=== PATIENT | female | born 1965 | race Caucasian/White ===

== ENCOUNTER → 2024-01-27 08:15 | Outpatient (REF) | payer BC, SELFPAY | LOC: RCS 08:15 | PROVIDERS: ATTENDING PHYSICIAN Nurse Practitioner Family; FAMILY PHYSICIAN Internal Medicine | DX: I45.9 Conduction disorder, unspecified (principal) | CPT/HCPCS: 93225; 93226 ==

== ENCOUNTER 2024-02-05 06:27 | Emergency (ER) | payer BC, SELFPAY ==
[2024-02-05 06:37] VITALS: BP 165/104
--- NOTE | 2024-02-05 08:51 | ED.GENMED ---
History of Present Illness
General
Chief Complaint: Abdominal Pain
Source: patient
Exam Limitations: none
Time Seen by Provider: 02/05/24 08:26
Nursing documentation reviewed up to this point in time: agreed with
Travel History
Have you had any contact with someone who has COVID-19?: No
Do you have any symptoms of coronavirus? Fever > 100 degrees, chills, cough, shortness of breath, sore throat, loss of taste or smell, muscle aches, or headache?: No
History of Present Illness
History of Present Illness:
58 yr old female presents to the ED for evaluation. Patient reports she has had chest tightness and upper abdominal discomfort for the past 1-1/2 to 2 weeks. She reports it is worse when she lays down and sleep and is definitely worse at night.
She reports when she burps the symptoms seem to improve. She has no pain at all with walking fact she reports exercise and walking makes it better. She does feel reflux going up her throat. She has had some palpitations and was seen by her family
doctor who ordered a Holter monitor. She had a Holter monitor done last week and is scheduled to see Dr. Summers of cardiology next week. She also has an echo scheduled tomorrow. She does not smoke. She is no cardiac history.
She is presently asymptomatic. She denies any shortness of breath with it. Patient complains of feeling anxious over getting blood work here in the ER.
Review of Systems
Review of Systems
Allergies reviewed?: Yes
All Other Systems: ROS reviewed and negative except as documented in HPI and ROS
Constitutional: Reports no symptoms
Respiratory: Denies trouble breathing
Cardiac: Reports chest pain
ABD/GI: Reports abdominal pain (upper abd discomfort and reflux)
Musculoskeletal: Reports no symptoms
Skin: Reports no symptoms
Neurological: Reports no symptoms
Hematologic/Lymphatic: Reports no symptoms
Psychiatric: Reports no symptoms
Phy Exam
General Physical Exam
General Presentation: well appearing and no apparent distress
General age: appears stated age
General Skin: warm and dry
General Habitus: normal
General Mental: alert
General Hydration: appears well hydrated
Cardiovascular Exam
Cardiovascular Exam: regular rate/rhythm, no murmur and normal peripheral pulses
Pulmonary Exam
Pulmonary Exam: lungs clear
Neurological Exam
Neurological Exam: alert and oriented x3
Course
Orders/Labs/Results
Orders:
Orders
02/05/24 08:48
IV Insert/Care/Rem.- Treatment PRN
02/05/24 08:50
Cardiac Monitoring- Treatment ONCE
CR Chest - 2 Views Urgent
Comment:
Reason For Exam: cp
02/05/24 09:31
Complete Blood Count/With Diff Urgent
Comprehensive Metabolic Panel Urgent
Troponin I Urgent
02/05/24 11:13
Electrocardiogram (*1) Stat
Reason for Study: Other
Other Reason for Exam: chest pain
EKG- Treatment ONCE
02/05/24 11:59
Famotidine [Pepcid] 20 mg IV NOW STA
Mag Hydrox/Al Hydrox/Simeth [Maalox] 30 ml Phenobarb/Hyoscy/Atropine/Scop [] 10 ml PO NOW
02/05/24 12:01
Mag Hydrox/Al Hydrox/Simeth [Maalox] 30 ml .ROUTE .STK-MED ONE
Phenobarb/Hyoscy/Atropine/Scop [] 10 ml .ROUTE .STK-MED ONE
02/05/24 12:02
Sterile Water [Sterile Water For Injection] 10 ml .ROUTE .STK-MED ONE
Abnormal Lab Results
02/05/24
09:31
Glucose 107 H mg/dl
(70-99)
Calcium 10.3 H mg/dl
(8.4-10.2)
02/05/24 09:31
02/05/24 09:31
Vital Signs
Initial and Last Documented VS:
Initial Vital Signs
Temp Pulse Resp BP Pulse Ox
98.1 F 100 14 165/104 100
02/05/24 06:37 02/05/24 06:37 02/05/24 06:37 02/05/24 06:37 02/05/24 06:37
Last Documented Vital Signs
Temp Pulse Resp BP Pulse Ox
98.1 F 105 26 115/91 96
02/05/24 06:37 02/05/24 12:00 02/05/24 12:00 02/05/24 12:00 02/05/24 12:00
Insulation Worker consulted with Physician
Insulation Worker consulted with physician?: Yes
Name of Physician Consulted: [email or web address]
MDM/Problems Addressed
MDM/Problems Addressed:
Symptoms are consistent with reflux, GERD. Patient describes symptoms discomfort and upper abdominal discomfort and chest worse with laying down feels reflux relieved with belching. It is better with activity better with walking. She has no
cardiac history. She has had issues with this feeling skipped heart rate and had a Holter monitor last week has an echo scheduled has cardiology appointment scheduled patient to continue this appointment however symptoms are likely reflux will DC
with Protonix daily with close outpatient follow-up family doctor and if needed GI
*Radiology
Radiology exam reviewed: radiology read reviewed
*Pulse Oximetry
Patient hypoxic: no
*EKG
Interpreted by ED Provider?: Yes
Interpretation: normal
Heart Rate: 99
Rate: normal
Rhythm: PVC's
Ischemia: no ischemia
*Critical Care Note
Total Time (30-74mins, 75-104mins- exclusive of procedures): Not Applicable
ED Attending Note
-
Portions of this chart may have been created with voice recognition software.� Occasional wrong word or��sound alike� substitutions may have occurred due to the inherent limitations of voice recognition software.
Discharge Plan
Departure
Patient Disposition: Home (Routine Discharge)
Date of Disposition: 02/05/24
Time of Disposition: 12:49
Patient with high blood pressure during this ER visit?: Yes
Condition: Fair
Covid-19: Not Applicable
Discharge Problem:
gerd
Instructions: Acid Reflux and GERD in Adults (DC), BLOOD PRESSURE
Prescriptions:
New
pantoprazole [Protonix] 40 mg tablet,delayed release (DR/EC)
40 mg PO DAILY Qty: 14 0RF
No Action
multivitamin Tablet
1 tab PO DAILY
fexofenadine-pseudoephedrine [Yusra-D 12 Hour] 60-120 mg Tablet Extended Release 12 Hr
1 tab PO Q12H PRN (Reason: Allergies)
fluticasone propionate [Flonase] 50 mcg/actuation [place],Suspension
1 spray INTRANASAL BID PRN (Reason: Allergies)
cholecalciferol (vitamin D3) [Vitamin D3] 125 mcg (5,000 unit) Tablet
125 mcg PO BID
Nurtec ODT 75 mg Tablet,Disintegrating
75 mg PO ONCE PRN (Reason: Migraine)
Referrals:
Eliud Guy MD [Family Provider] -
Tahira Sharma MD [Active] -
Activity Restrictions/Additional Instructions:
As discussed a prescription for Protonix was sent to your pharmacy take as directed daily for the next 14 days. Be sure to avoid spicy foods caffeine chocolate. Return to the ER if any worsening of symptoms he may follow-up also with a family
doctor. Continue to follow-up with cardiology as previously scheduled though today symptoms are consistent with reflux
Interventions
Interventions:
*Risk Screen - Suicide Last Done: 02/05/24 09:19
*General Assessment Last Done: 02/05/24 09:19
*Neglect/Abuse Screening Last Done: 02/05/24 09:19
ED- Fall Risk Assessment Last Done: 02/05/24 09:19
*ED COVID-19 Vaccine History Last Done: 02/05/24 09:19
[facility]-Uxhsvt-Pzfkolroyg Assessment Last Done: 02/05/24 09:19
Discharge Date and Time
Print Language: LAO
[2024-02-05 09:20] VITALS: BP 138/78; BMI 24.7
[2024-02-05 09:41] LABS: % Basophils 0.6 % (0-2); % Eosinophils 0.3 % (0-6); % Immature Granulocytes 0.3 % (0-0.5); % Lymphocytes 26.2 % (20.5-51.1); % Neutrophils 69.6 % (42.2-75.2); Absolute Basophils 0.1 10^3/uL (0-0.2); Absolute Monocytes 0.2 10^3/uL (0.1-0.6); Absolute Neutrophils 5.4 10^3/uL (1.4-6.5); Hematocrit 39.8 % (37.0-47.0); Hemoglobin 13.8 g/dL (12.0-16.0); Mean Corp Hgb Conc. 34.7 g/dL (33.0-37.0); Mean Corpuscular Hgb 29.6 pg (27.0-31.0); Mean Corpuscular Volume 85.2 fL (81.0-99.0); Mean Platelet Volume 9.4 fL (7.4-10.4); Nucleated Red Blood Cells % 0 %; Platelet Count 299 10^3/uL (130-400); Red Blood Cell Count 4.67 10^6/uL (4.20-5.40); Red Cell Dist. Width 12.9 % (11.5-14.5); White Blood Cell Count 7.8 10^3/uL (4.8-10.8)
[2024-02-05 09:53] LABS: ALT (SGPT) 27 U/L (0-35); AST (SGOT) 30 U/L (14-36); Albumin 4.9 g/dl (3.5-5.0); Alkaline Phosphatase 103 U/L (38-126); Blood Urea Nitrogen 10 mg/dl (7-17); Calcium 10.3 mg/dl (8.4-10.2); Carbon Dioxide 22 mmol/L (22-30); Chloride 107 mmol/L (98-107); Estimated Creatinine Clearance 93 ml/min; Glucose 107 mg/dl (70-99); Potassium 4.2 mmol/L (3.5-5.1); Sodium 137 mmol/L (135-145); Total Bilirubin 0.5 mg/dl (0.2-1.3); Total Protein 7.7 g/dl (6.3-8.2); eGFR > 60.00
[2024-02-05 10:11] LABS: Troponin I < 0.012 ng/ml
[2024-02-05 10:38] VITALS: BP 127/86
[2024-02-05 11:00] VITALS: BP 116/82
[2024-02-05 12:00] VITALS: BP 115/91
[2024-02-05] MEDS: MAALOX 40 PO (12:03)
[2024-02-05] MEDS: PEPCID 20 MG PO (13:06)
== END 2024-02-05 13:11 | disposition home or self-care (01) ==
LOC: EMR 06:27
PROVIDERS: Nurse Practitioner; EMERGENCY PHYSICIAN Student in an Organized Health Care Education/Training Program; FAMILY PHYSICIAN Internal Medicine
DX: K21.9 Gastro-esophageal reflux disease without esophagitis (principal); R03.0 Elevated blood-pressure reading, without diagnosis of hypertension
CPT/HCPCS: 99285; 71046; 80053; 84484; 85025; 93005

== ENCOUNTER → 2024-02-06 14:28 | Outpatient (REF) | payer BC, SELFPAY | LOC: HWRCS 14:28 | PROVIDERS: ATTENDING PHYSICIAN Nurse Practitioner Family; FAMILY PHYSICIAN Internal Medicine | DX: I45.9 Conduction disorder, unspecified (principal) | CPT/HCPCS: 93306 ==

== ENCOUNTER 2024-02-13 11:13 | Emergency (ER) | payer BC, SELFPAY ==
[2024-02-13] VITALS (7 sets, daily range): BP systolic 109–128; BP diastolic 73–93; PULSE 81–115; BMI 23.1
[2024-02-13 12:03] LABS: % Basophils 0.8 % (0-2); % Eosinophils 1.1 % (0-6); % Immature Granulocytes 0.5 % (0-0.5); % Lymphocytes 37.5 % (20.5-51.1); % Monocytes 6.2 % (1.7-9.3); % Neutrophils 53.9 % (42.2-75.2); Absolute Basophils 0.1 10^3/uL (0-0.2); Absolute Eosinophils 0.1 10^3/uL (0-0.7); Absolute Lymphocytes 3.2 10^3/uL (1.2-3.4); Absolute Monocytes 0.5 10^3/uL (0.1-0.6); Absolute Neutrophils 4.6 10^3/uL (1.4-6.5); Hematocrit 41.2 % (37.0-47.0); Hemoglobin 14.4 g/dL (12.0-16.0); Mean Corpuscular Hgb 30.1 pg (27.0-31.0); Mean Corpuscular Volume 86.2 fL (81.0-99.0); Mean Platelet Volume 9.9 fL (7.4-10.4); Nucleated Red Blood Cells % 0 %; Platelet Count 316 10^3/uL (130-400); Red Blood Cell Count 4.78 10^6/uL (4.20-5.40); Red Cell Dist. Width 12.7 % (11.5-14.5); White Blood Cell Count 8.5 10^3/uL (4.8-10.8)
[2024-02-13 12:16] LABS: ALT (SGPT) 52 U/L (0-35); AST (SGOT) 42 U/L (14-36); Albumin 5.2 g/dl (3.5-5.0); Alkaline Phosphatase 99 U/L (38-126); Blood Urea Nitrogen 10 mg/dl (7-17); Calcium 10.7 mg/dl (8.4-10.2); Carbon Dioxide 28 mmol/L (22-30); Chloride 103 mmol/L (98-107); Glucose 104 mg/dl (70-99); Sodium 138 mmol/L (135-145); Total Bilirubin 0.6 mg/dl (0.2-1.3); Total Protein 8.2 g/dl (6.3-8.2); eGFR > 60.00
[2024-02-13 12:26] LABS: Troponin I < 0.012 ng/ml
[2024-02-13 12:33] LABS: Urine Albumin Negative (Neg - Trace); Urine Bilirubin Negative (Negative); Urine Character Clear (Clear); Urine Color Yellow; Urine Glucose Negative (Negative); Urine Ketone Negative (Negative); Urine Leukocyte Negative (Negative); Urine Nitrite Negative (Negative); Urine Occult Blood Negative (Negative); Urine Urobilinogen Negative (Neg - 1+)
--- NOTE | 2024-02-13 14:53 | ED.GENMED ---
History of Present Illness
General
Chief Complaint: Dizziness
Source: patient
Exam Limitations: none
Time Seen by Provider: 02/13/24 12:56
Travel History
Have you had any contact with someone who has COVID-19?: No
Do you have any symptoms of coronavirus? Fever > 100 degrees, chills, cough, shortness of breath, sore throat, loss of taste or smell, muscle aches, or headache?: No
History of Present Illness
History of Present Illness:
This is a 58yo who presents with a variety of complaints. the pt was seen in the ER on 02/04 and has been seen by her pcp. pt states that she has had off/on palpitations. her doctor had ordered an echo and a holter. the holter showed about 3% of
PVC's. Patient is unaware of the results of her echocardiogram. She has a cardiology appointment planned for Friday. Patient states that in the night she woke all night and had a little bit of an anxiety attack. She does admit that she has had
migraines and suspects is related. Her doctor advised her to come off of her migraine medicines to see if it was playing a role. Patient also reported feeling 'dizzy'. Primary care doctor noted she developed worsening symptoms when she went lying
to standing. Patient denies diarrhea or melena. No hematochezia. Today she had an episode of fast heart rate. She became concerned. On my evaluation she actually feels much better. On her last emergency department visit, she had had some
discomfort in her chest but is associated with GERD she states that seems better
Past History
Past History
ED Past Medical History: GERD, Psychiatric (Anxiety) and Other (PVCs, migraine)
Phy Exam
Physical Exam
Physical Exam:
CONSTITUTIONAL Patient alert and oriented to person, place and time. Well-appearing. Vital signs reviewed.
HEAD atraumatic, normocephalic.
EYES eyelids normal to inspection, Pupils equally round and reactive to light, Extraocular muscles intact, Conjunctiva normal, Sclera normal.
NECK normal range of motion, Trachea midline, no jugular venous distention.
RESPIRATORY CHEST No respiratory distress noted, Chest expansion equal, Bilateral breath sounds clear.
CARDIOVASCULAR regular rate and rhythm, Heart sounds normal.
ABDOMEN abdomen nontender, Bowel sounds normal. No distention.
BACK normal inspection, no obvious deformities
UPPER EXTREMITY range of motion normal, Motor strength normal, no cyanosis, no edema.
LOWER EXTREMITY range of motion normal, Motor strength normal, no cyanosis, no edema.
NEURO Speech normal, No focal motor deficits, Sandy coma scale 15, Memory normal, Cranial Nerves intact to screening exam.
SKIN skin warm, dry, and normal in color.
PSYCHIATRIC patient oriented to person place and time, Normal affect.
Course
Orders/Labs/Results
Orders:
Orders
02/13/24 11:39
Electrocardiogram (*1) Urgent
Reason for Study: Vertigo / Dizzy
EKG- Treatment ONCE
02/13/24 11:50
CMP [Comprehensive Metabolic Panel] Urgent
Complete Blood Count/With Diff Urgent
Troponin I Urgent
Urinalysis Reflex To Culture Urgent
Date Specimen was Collected: 02/13/24
Time Specimen was Collected: 11:38
02/13/24 13:38
Orthostatic VS- Treatment ONCE
Abnormal Lab Results
02/13/24
11:50
Glucose 104 H mg/dl
(70-99)
Calcium 10.7 H mg/dl
(8.4-10.2)
AST 42 H U/L
(14-36)
ALT 52 H U/L
(0-35)
Albumin 5.2 H g/dl
(3.5-5.0)
02/13/24 11:50
02/13/24 11:50
Vital Signs
Initial and Last Documented VS:
Initial Vital Signs
Temp Pulse Resp Pulse Ox
98.1 F 95 18 98
02/13/24 11:30 02/13/24 11:30 02/13/24 11:30 02/13/24 11:30
Last Documented Vital Signs
Temp Pulse Resp BP Pulse Ox
98.1 F 95 18 128/89 100
02/13/24 11:30 02/13/24 11:30 02/13/24 11:30 02/13/24 13:03 02/13/24 13:04
MDM/Problems Addressed
MDM/Problems Addressed:
Palpitations, anxiety, orthostasis
*Pulse Oximetry
Patient hypoxic: no
*EKG
Interpreted by ED Provider?: Yes
Interpretation: normal
Rate: normal
Rhythm: sinus
[place]: normal axis
QRS Pattern: normal QRS
Ischemia: no ischemia
*Food Runner Interpretation
Rate: normal
Interpretation: normal
Rhythm: sinus
*Critical Care Note
Total Time (30-74mins, 75-104mins- exclusive of procedures): Not Applicable
Data Reviewed
Source: patient
Prescriptions/Medications Considered But Not Given:
Considered AV blockers but patient appears well and sees cardiology on Friday
Patient Management
Escalation/DeEscalation of care consider admission/obs:
Heart rate did increase with standing. Will encourage her to drink plenty fluids. Also advised against taking Yusra-D. Also advised to hold off on migraine medicine focal seen by cardiology. Overall well-appearing and no clinical suspicion for
concerning arrhythmia
ED Attending Note
-
Portions of this chart may have been created with voice recognition software.� Occasional wrong word or��sound alike� substitutions may have occurred due to the inherent limitations of voice recognition software.
Discharge Plan
Departure
Patient Disposition: Home (Routine Discharge)
Date of Disposition: 02/13/24
Time of Disposition: 14:53
Patient with high blood pressure during this ER visit?: No
Discharge Problem:
Palpitations
Instructions: Palpitations
Prescriptions:
No Action
multivitamin Tablet
1 tab PO DAILY
fexofenadine-pseudoephedrine [Yusra-D 12 Hour] 60-120 mg Tablet Extended Release 12 Hr
1 tab PO Q12H PRN (Reason: Allergies)
fluticasone propionate [Flonase] 50 mcg/actuation [place],Suspension
1 spray INTRANASAL BID PRN (Reason: Allergies)
cholecalciferol (vitamin D3) [Vitamin D3] 125 mcg (5,000 unit) Tablet
125 mcg PO BID
Nurtec ODT 75 mg Tablet,Disintegrating
75 mg PO ONCE PRN (Reason: Migraine)
pantoprazole [Protonix] 40 mg tablet,delayed release (DR/EC)
40 mg PO DAILY Qty: 14 0RF
Referrals:
Eliud Guy MD [Family Provider] -
Activity Restrictions/Additional Instructions:
Please see cardiology on Friday as planned. Return immediately for chest pain, shortness of breath, worsening symptoms or any other concerns. Please drink plenty of fluids. Continue to hold your migraine medicine for now.
Interventions
Interventions:
*Risk Screen - Suicide Last Done: 02/13/24 13:01
*General Assessment Last Done: 02/13/24 13:01
*Neglect/Abuse Screening Last Done: 02/13/24 13:01
ED- Fall Risk Assessment Last Done: 02/13/24 13:01
*ED COVID-19 Vaccine History Last Done: 02/13/24 13:01
ED- Neurological Assessment Last Done: 02/13/24 13:01
ED- Cardiac Assessment Last Done: 02/13/24 13:01
ED Swallowing Screen Last Done: 02/13/24 13:01
Discharge Date and Time
Print Language: SAUDI ARABIAN
== END 2024-02-13 15:30 | disposition home or self-care (01) ==
LOC: EMR 11:13
PROVIDERS: Emergency Medicine; EMERGENCY PHYSICIAN Emergency Medicine; FAMILY PHYSICIAN Internal Medicine
DX: R00.2 Palpitations (principal); R42 Dizziness and giddiness; K21.9 Gastro-esophageal reflux disease without esophagitis; F41.9 Anxiety disorder, unspecified; I49.3 Ventricular premature depolarization
CPT/HCPCS: 99283; 80053; 81003; 84484; 85025; 93005

== ENCOUNTER → 2024-10-08 14:00 | Outpatient (REF) | payer BC, SELFPAY | LOC: WDC 14:00 | PROVIDERS: ATTENDING PHYSICIAN Obstetrics & Gynecology Gynecology; FAMILY PHYSICIAN Internal Medicine | DX: R92.8 Other abnormal and inconclusive findings on diagnostic imaging of breast (principal); Z12.31 Encounter for screening mammogram for malignant neoplasm of breast | CPT/HCPCS: 76642; 77063; 77067 ==

== ENCOUNTER 2024-12-05 20:24 | Emergency (ER) | payer BC, SELFPAY ==
[2024-12-05 20:40] VITALS: BP 139/90
--- NOTE | 2024-12-05 22:35 | ED.MUSCINJ ---
HPI-Injury
General
Chief Complaint: Musculo-Skeletal Complaint
Source: patient
Exam Limitations: none
Time Seen by Provider: 12/05/24 21:05
Nursing documentation reviewed up to this point in time: agreed with
History of Present Illness-Injury
Is this injury a work related problem?: No
Is pt an associate of [facility]?: No
Initial Injury comments:
Patient states she was outside walking her dogs and tripped and fell. Denies hitting her head. Complains of pain to right lat ankle, right lateral foot, abrasion to right knee. Injury occurred just [employer]. Brought to ED by neighbor for eval. Tdap
UTD
Past History
Past History
ED Past Medical History: GERD, Psychiatric (Anxiety) and Other (PVCs, migraine)
Review of Systems
Review of Systems
Allergies reviewed?: Yes
All Other Systems: ROS reviewed and negative except as documented in HPI and ROS
Constitutional: Reports no symptoms
Musculoskeletal: Reports joint pain (pain to right lat ankle and right lateral foot)
Skin: Reports other (abrasion to right knee)
Neurological: Reports no symptoms
Psychiatric: Reports no symptoms
Musculoskeletal Injury Exam
Musculoskeletal Injury Exam
Right Lateral Ankle:
Pain with Movement?: Moderate
Tender to palpation?: Moderate
Soft tissue swelling?: Moderate
External deformity and angulation?: None
Joint effusion?: None
Contusion?: None
Hematoma-local bleeding into tissue?: None
Strain- Sprain- Tear (Connective tissue injury)?: Moderate
Crepitus with movement?: No
Joint instability?: No
Malalignment/deformity?: No
Range of motion: Limited
Distal skin color and temperature: normal-warm & good color
Capillary Refill: normal
Normal distal neurovascular exam?: Yes
Peripheral Pulses: posterior tibial (right): 3+ and dorsalis pedis (right): 3+
Right Lateral Foot:
Pain with Movement?: Moderate
Tender to palpation?: Moderate
Soft tissue swelling?: Moderate
External deformity and angulation?: None
Joint effusion?: None
Contusion?: None
Hematoma-local bleeding into tissue?: Moderate
Strain- Sprain- Tear (Connective tissue injury)?: Moderate
Crepitus with movement?: No
Joint instability?: No
Malalignment/deformity?: No
Range of motion: Limited
Distal skin color and temperature: normal-warm & good color
Capillary Refill: normal
Normal distal neurovascular exam?: Yes
Skin Exam
Abrasion
Right Anterior Knee:
Description of abrasion: superfical/clean
Phy Exam
General Physical Exam
General Presentation: well appearing and no apparent distress
General age: appears stated age
General Skin: warm and dry
General Habitus: normal
General Mental: alert
Musculoskeletal Exam
Musculoskeletal Exam: neuro vasc intact and other (Achilles intact. No tenderness proximal tib/fib)
Skin Exam
Skin Exam: normal color, warm/dry and no rash
Psychiatric Exam
Psychiatric Exam: normal mood/affect
Injury Course
Orders/Labs/Results
Orders:
Orders
12/05/24 20:46
Ankle, Right 3 view CR [CR Ankle - Right Min 3 Views *] Urgent
Comment:
Reason For Exam: injury
12/05/24 21:50
Ortho Boot Right- Treatment ONCE
Short or tall?: Tall
*Radiology
Radiology exam reviewed: radiology read reviewed
*Pulse Oximetry
Patient hypoxic: no
*Critical Care Note
Total Time (30-74mins, 75-104mins- exclusive of procedures): Not Applicable
ED Attending Note
-
Portions of this chart may have been created with voice recognition software.� Occasional wrong word or��sound alike� substitutions may have occurred due to the inherent limitations of voice recognition software.
Discharge Plan
Departure
Patient Disposition: Home (Routine Discharge)
Date of Disposition: 12/05/24
Time of Disposition: 21:51
Patient with high blood pressure during this ER visit?: No
Condition: Good
Covid-19: Not Applicable
Discharge Problem:
Ankle fracture, Foot fracture
Instructions: Ankle fracture, Ibuprofen, Using Cold for Pain, Foot Fracture
Prescriptions:
No Action
multivitamin Tablet
1 tab PO DAILY
fexofenadine-pseudoephedrine [Yusra-D 12 Hour] 60-120 mg Tablet Extended Release 12 Hr
1 tab PO Q12H PRN (Reason: Allergies)
fluticasone propionate [Flonase] 50 mcg/actuation [place],Suspension
1 spray INTRANASAL BID PRN (Reason: Allergies)
cholecalciferol (vitamin D3) [Vitamin D3] 125 mcg (5,000 unit) Tablet
125 mcg PO BID
Nurtec ODT 75 mg Tablet,Disintegrating
75 mg PO ONCE PRN (Reason: Migraine)
pantoprazole [Protonix] 40 mg tablet,delayed release (DR/EC)
40 mg PO DAILY Qty: 14 0RF
Referrals:
Eliud Guy MD [Family Provider] -
Yokasta Terry DO [Active] - Call in 1-3 days for appt
Discharge Date and Time
Print Language: THAI
== END 2024-12-05 22:42 | disposition home or self-care (01) ==
LOC: EMR 20:24
PROVIDERS: EMERGENCY PHYSICIAN Student in an Organized Health Care Education/Training Program; FAMILY PHYSICIAN Internal Medicine
DX: S82.891A Other fracture of right lower leg, initial encounter for closed fracture (principal); S92.901A Unspecified fracture of right foot, initial encounter for closed fracture; S80.211A Abrasion, right knee, initial encounter; W01.0XXA Fall on same level from slipping, tripping and stumbling without subsequent striking against object, initial encounter; Y93.01 Activity, walking, marching and hiking; K21.9 Gastro-esophageal reflux disease without esophagitis; F41.9 Anxiety disorder, unspecified; I49.3 Ventricular premature depolarization
CPT/HCPCS: 99283; 73610

== ENCOUNTER → 2025-05-19 08:06 | Outpatient (REF) | payer BC, SELFPAY | LOC: HWRAD 08:06 | PROVIDERS: ATTENDING PHYSICIAN Internal Medicine | DX: Z91.89 Other specified personal risk factors, not elsewhere classified (principal); Z82.62 Family history of osteoporosis | CPT/HCPCS: 77080 ==

== ENCOUNTER → 2025-05-26 15:51 | Outpatient (REF) | payer BC, SELFPAY | LOC: HWRAD 15:51 | PROVIDERS: ATTENDING PHYSICIAN Internal Medicine | DX: M54.50 Low back pain, unspecified (principal) | CPT/HCPCS: 72110 ==

== ENCOUNTER 2025-06-27 17:28 | Emergency (ER) | payer BC, SELFPAY ==
[2025-06-27 17:31] VITALS: BP 175/94
[2025-06-27 17:52] LABS: Hematocrit 38.6 % (37.0-47.0); Hemoglobin 13.1 g/dL (12.0-16.0); Mean Corp Hgb Conc. 33.9 g/dL (33.0-37.0); Mean Corpuscular Volume 88.3 fL (81.0-99.0); Nucleated Red Blood Cells % 0 %; Platelet Count 274 10^3/uL (130-400); Red Cell Dist. Width 12.6 % (11.5-14.5)
[2025-06-27 18:17] LABS: Urine Character Clear (Clear)
[2025-06-27 18:17] LABS: ALT (SGPT) 19 U/L (0-35); AST (SGOT) 23 U/L (14-36); Albumin 5.2 g/dl (3.5-5.0); Alkaline Phosphatase 101 U/L (38-126); Blood Urea Nitrogen 15 mg/dl (7-17); Calcium 10.3 mg/dl (8.4-10.2); Carbon Dioxide 26 mmol/L (22-30); Chloride 104 mmol/L (98-107); Glucose 135 mg/dl (70-99); Potassium 5.5 mmol/L (3.5-5.1); Sodium 137 mmol/L (135-145); Total Protein 7.5 g/dl (6.3-8.2); eGFR > 60.00
[2025-06-27 19:18] LABS: Urine Red Blood Cell 0-2 /HPF (0-2); Urine Squamous Cell 0-2 /LPF (Few); Urine White Cell 0-2 /HPF (0-5)
[2025-06-27] MEDS: NORCO 5/325 1 TABLET PO (21:19)
[2025-06-27 21:23] VITALS: BMI 25.0
--- NOTE | 2025-06-27 21:32 | ED.GENMED ---
History of Present Illness
General
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
Source: patient
Time Seen by Provider: 06/27/25 20:54
History of Present Illness
History of Present Illness:
59-year-old female with past medical history of migraine disorder, GERD, chronic vulvodynia/pelvic pain follows with pelvic physical therapy and Dr. Almeida for [employer] care presenting to the ER stating that over the last week she has had a 'spike in her
usual chronic pelvic pain for the last week'. Patient reports that she was started on metronidazole for bacterial vaginosis which was diagnosed at Dr. Almeida's office earlier last week, pick the prescription up earlier today but states she was told
to only use the medication at nighttime prior to sleeping so has not started the medication yet. She was also given a prescription for per that and this does help relieve the pain intermittently. There are no other associated symptoms with this.
Patient states she does not have any concern for STI as she has not been sexually active in over 6 years. She denies any fevers, chills, rigors. She does endorse some mild urinary frequency but denies dysuria or hematuria.
Past History
Past History
ED Past Medical History: GERD, Psychiatric (Anxiety) and Other (PVCs, migraine)
ED Past Surgical History: None
Social History
Tobacco: Non-smoker
Alcohol: None
Drug: None
Personal:
Living: alone
Review of Systems
Review of Systems
All Other Systems: ROS reviewed and negative except as documented in HPI and ROS
Phy Exam
Physical Exam
Physical Exam:
GENERAL: Alert , in no apparent distress, very anxious in appearance
EYE: clear conjunctiva b/l
HEAD: NCAT
ENT: o/p clr, mmm.
CARDIAC: Regular rate and rhythm .
LUNGS: Clear breath sounds bilaterally, no acute respiratory distress, no wheezes/rales/rhonchi
ABDOMEN: Soft, diffusely tender lower abdomen, no r/g, no cvat
NEUROLOGICAL: Alert and oriented
SKIN: Warm and dry, skin intact.
MUSCULOSKELETAL: No edema, well perfused.
PSYCH: Normal and appropriate interaction.
Scores
Heart Failure Risk
Heart Failure Risk Score: Not Applicable
Heart Score for Chest Pain Patients
STEMI patient?: Not applicable
Withdrawal Assessment of Alcohol
Withdrawal Assessment Completed?: Not applicable
Course
Orders/Labs/Results
Orders:
Orders
06/27/25 17:44
Complete Blood Count/With Diff Urgent
Comprehensive Metabolic Panel Urgent
06/27/25 18:05
Urinalysis Reflex To Culture Urgent
Date Specimen was Collected: 06/27/25
Time Specimen was Collected: 17:34
Urine Microscopic Reflex Cult Urgent
06/27/25 21:16
Hydrocodone 5/APAP 325 [[place] 5/325] 1 tablet PO NOW STA
US Pelvis Only (non-obstetric) Urgent
Comment:
Reason For Exam: lower pelvic pain
Abnormal Lab Results
06/27/25 06/27/25
17:44 18:05
Absolute Lymphs (auto) 4.5 H 10^3/uL
(1.2-3.4)
Potassium 5.5 H mmol/L
(3.5-5.1)
Glucose 135 H mg/dl
(70-99)
Calcium 10.3 H mg/dl
(8.4-10.2)
Albumin 5.2 H g/dl
(3.5-5.0)
Ur Occult Blood Reflex 1+ A
(Negative)
Urine Bacteria (Reflex) Few A
(Negative)
06/27/25 17:44
06/27/25 17:44
Vital Signs
Initial and Last Documented VS:
Initial Vital Signs
Temp Pulse Resp BP Pulse Ox
98.0 F 75 16 175/94 98
06/27/25 17:31 06/27/25 17:31 06/27/25 17:31 06/27/25 17:31 06/27/25 17:31
Last Documented Vital Signs
Temp Pulse Resp BP Pulse Ox
98.0 F 75 16 125/95 100
06/27/25 17:31 06/27/25 17:31 06/27/25 17:31 06/27/25 22:00 06/27/25 22:00
MDM/Problems Addressed
Differential Diagnosis Includes:
Acute on chronic exacerbation of pelvic pain
Endometriosis
Ovarian cyst
Ovarian torsion
UTI
Peroneal nerve injury
Post menopausal state
No concern for STI/PID
MDM/Problems Addressed:
59-year-old female presenting to the ER for evaluation of acute on chronic exacerbation of pelvic pain. Unclear etiology for symptoms. Patient was scheduled undergo outpatient ultrasound on Friday but given her reported symptoms will obtain
this tonight. Patient states she would like something for pain but does not want any intramuscular or intravenous medications given. Will treat here with a dose of Vicodin at her. Patient has a scheduled follow-up with urogynecology at the end of
August. Would likely benefit from pain management follow-up as well. Patient did also get a prescription for Elavil from her primary care provider but has yet to take this. Did recommend patient contact primary care provider to discuss this but
that if she was given the prescription for pain control that it may be beneficial for her to initiate this medication as well.
Chronic conditions affecting care: Other (Chronic pelvic pain)
*Radiology
Radiology exam reviewed: radiology read reviewed
*Pulse Oximetry
SaO2: 98
Oxygen Mode of Delivery: Room air
Patient hypoxic: no
*Critical Care Note
Total Time (30-74mins, 75-104mins- exclusive of procedures): Not Applicable
Patient Management
Social determinants of health affecting care: Other (Strong outpatient follow-up)
Escalation/DeEscalation of care consider admission/obs:
Patient's ultrasound is negative for any intra-abdominal pathologies. Stable for discharge home. She will follow-up with her primary care provider as well as [employer] and contact the urogynecologist tomorrow to see if they can remove her appointment
up. Percocet sent to patient's pharmacy. [place] PDMP reviewed which shows patient's only prescription coming from her [employer] from last week. Patient aware of return precautions to the ER.
ED Attending Note
-
Portions of this chart may have been created with voice recognition software.� Occasional wrong word or��sound alike� substitutions may have occurred due to the inherent limitations of voice recognition software.
Discharge Plan
Departure
Patient Disposition: Home (Routine Discharge)
Date of Disposition: 06/27/25
Time of Disposition: 22:27
Patient with high blood pressure during this ER visit?: Yes
Discharge Problem:
Chronic female pelvic pain
Instructions: Pelvic pain - ED (DC)
Prescriptions:
New
oxycodone-acetaminophen [Percocet] 5-325 mg tablet
1 tab PO Q6HPRN PRN (Reason: pain) Qty: 8 0RF
No Action
multivitamin Tablet
1 tab PO DAILY
fexofenadine-pseudoephedrine [Yusra-D 12 Hour] 60-120 mg Tablet Extended Release 12 Hr
1 tab PO Q12H PRN (Reason: Allergies)
fluticasone propionate [Flonase] 50 mcg/actuation [place],Suspension
1 spray INTRANASAL BID PRN (Reason: Allergies)
cholecalciferol (vitamin D3) [Vitamin D3] 125 mcg (5,000 unit) Tablet
125 mcg PO BID
Nurtec ODT 75 mg Tablet,Disintegrating
75 mg PO ONCE PRN (Reason: Migraine)
pantoprazole [Protonix] 40 mg tablet,delayed release (DR/EC)
40 mg PO DAILY Qty: 14 0RF
Referrals:
UNKNOWN - PT DOES,NOT KNOW [Unknown Provider]
Interventions
Interventions:
*Risk Screen - Suicide Last Done: 06/27/25 22:00
*General Assessment Last Done: 06/27/25 22:00
*Neglect/Abuse Screening Last Done: 06/27/25 22:00
*ED- Fall Risk Assessment Last Done: 06/27/25 22:00
*ED COVID-19 Vaccine History Last Done: 06/27/25 22:00
*Nursing Disposition Last Done: 06/27/25 22:53
ED-Female Genitourinary Assessment Last Done: 06/27/25 22:00
Discharge Date and Time
Discharge Date/Time: 06/27/25 22:54
Print Language: TU[place]
[2025-06-27 22:00] VITALS: BP 125/95
== END 2025-06-27 22:54 | disposition home or self-care (01) ==
LOC: EMR 17:28
PROVIDERS: Emergency Medicine; EMERGENCY PHYSICIAN Emergency Medicine; FAMILY PHYSICIAN Internal Medicine
DX: G89.29 Other chronic pain (principal); R10.2 Pelvic and perineal pain
CPT/HCPCS: 99284; 76856; 80053; 81003; 81015; 85025

== ENCOUNTER → 2025-07-21 12:00 | Outpatient (REF) | payer BC, SELFPAY | LOC: DHSLP 12:00 | PROVIDERS: ATTENDING PHYSICIAN Internal Medicine; FAMILY PHYSICIAN Internal Medicine | DX: G47.19 Other hypersomnia (principal); R06.83 Snoring | CPT/HCPCS: 95800 ==